=== PATIENT | female | born 1985 | race Caucasian/White ===

== ENCOUNTER → 2016-04-10 | Outpatient (CLI) | payer MEDICARE, MEDICAID ==
[2016-04-10 13:54] LABS: BASO # 0.2 K/mm3 (0.0-0.2); BASO % 1.6 % (0.0-1.0); EOS # 0.1 K/mm3 (0.0-0.50); EOS % 1.1 % (0.0-3.0); LARGE UNSTAINED CELL # 0.1 K/mm3 (0.0-0.4); LARGE UNSTAINED CELL % 1.2 % (0.0-4.0); LYMPH # 2.1 K/mm3 (1.5-4.5); LYMPH % 18.8 % (24.0-44.0); MEAN CORPUSCULAR HGB CONC 33.7 g/dl (32.0-36.5); MEAN CORPUSCULAR VOLUME 97.8 fl (80.0-96.0); MONO # 0.4 K/mm3 (0.0-0.8); NEUTROPHILS # 7.7 K/mm3 (1.8-7.7); NEUTROPHILS % 73.3 % (36.0-66.0); PLATELET COUNT, AUTOMATED 264 k/mm3 (150-450); RED CELL DISTRIBUTION WIDTH 13.3 % (11.5-14.5); WHITE BLOOD COUNT 10.5 K/mm3 (4.0-10.0)
[2016-04-10 15:28] LABS: ALBUMIN 4.1 GM/DL (3.2-5.2); ALBUMIN/GLOBULIN RATIO 1.17 (1.00-1.93); ALKALINE PHOSPHATASE 74 U/L (45-117); ALT/SGPT 34 U/L (12-78); ANION GAP 9 MEQ/L (8-16); AST/SGOT 25 U/L (15-37); BILIRUBIN,TOTAL 0.3 MG/DL (0.2-1.0); BLOOD UREA NITROGEN 10 MG/DL (7-18); CALCIUM LEVEL 9.3 MG/DL (8.5-10.1); CARBON DIOXIDE LEVEL 27 MEQ/L (21-32); CHLORIDE LEVEL 106 MEQ/L (98-107); CHOLESTEROL LEVEL 211 MG/DL (<200); CREATININE FOR GFR 0.88 MG/DL (0.55-1.02); GLOMERULAR FILTRATION RATE > 60.0 (>60); GLUCOSE, FASTING 87 MG/DL (70-105); POTASSIUM SERUM 4.5 MEQ/L (3.5-5.1); SODIUM LEVEL 142 MEQ/L (136-145); TOTAL PROTEIN 7.6 GM/DL (6.4-8.2); TRIGLYCERIDES LEVEL 132 MG/DL (<150)
== END ==
LOC: M LAB 12:46
PROVIDERS: ATTEND Family Medicine Addiction Medicine
DX: Z00.00 Encounter for general adult medical examination without abnormal findings (principal); E03.9 Hypothyroidism, unspecified

== ENCOUNTER 2016-09-28 14:36 | Emergency (ER) | payer MEDICARE, MEDICAID ==
[~2016-09-28] VITALS: Ht 160 cm; Wt 77.8 kg
[2016-09-28 14:36] VITALS: BP 152/94
[2016-09-28] MEDS ORDERED: IBUP1TAB6 GT (14:57)
[2016-09-28] MEDS ORDERED: NORCOTAB PO (15:36)
[2016-09-28] MEDS ORDERED: CLIN150C14 PO (15:36)
== END 2016-09-28 15:52 | disposition home or self-care (01) ==
LOC: M ED 15:35
DX: R68.84 Jaw pain (principal); K13.79 Other lesions of oral mucosa; K08.89 Other specified disorders of teeth and supporting structures; Z88.0 Allergy status to penicillin

== ENCOUNTER → 2016-11-27 | Outpatient (REF) | payer MEDICARE, MEDICAID ==
[~2016-11-27] MED LIST: CLIN150C14 PO; IBUP1TAB6 GT; NORCOTAB PO
[2016-11-27 20:23] LABS: FREE T4 0.9 NG/DL (0.76-1.46)
== END ==
LOC: M SFHCADAM 13:45
PROVIDERS: ATTEND Family Medicine
DX: F32.9 Major depressive disorder, single episode, unspecified (principal)
CPT/HCPCS: 84439; 84443; G0463

== ENCOUNTER → 2017-10-28 | Outpatient (REF) | payer MEDICARE, MEDICAID | LOC: M SFHCADAM 10:14 | DX: F32.9 Major depressive disorder, single episode, unspecified (principal) | CPT/HCPCS: 84443 ==

== ENCOUNTER 2018-04-04 15:58 | Emergency (ER) | payer MEDICARE, MEDICAID ==
[~2018-04-04] VITALS: Ht 160 cm; Wt 70.5 kg
[2018-04-04 15:59] VITALS: BP 143/97
[2018-04-04] MEDS ORDERED: VENL75CA47 PO (16:05)
[2018-04-04] MEDS ORDERED: MOTR200T44 PO (16:05)
[2018-04-04] MEDS ORDERED: BACL10TA2 PO (16:31)
[2018-04-04] MEDS ORDERED: PERC5TAB12 PO (16:31)
[2018-04-04] MEDS ORDERED: PERCOCET 5MG/325MG TAB PO ONE (16:45)
== END 2018-04-04 16:44 | disposition home or self-care (01) ==
LOC: M ED 15:58
DX: G89.29 Other chronic pain (principal); M54.17 Radiculopathy, lumbosacral region; M51.37 Other intervertebral disc degeneration, lumbosacral region; Z88.0 Allergy status to penicillin; F17.210 Nicotine dependence, cigarettes, uncomplicated

== ENCOUNTER 2019-03-02 12:45 | Emergency (ER) | payer MEDICAID, MEDICARE ==
[~2019-03-02] VITALS: Ht 157.5 cm; Wt 74.0 kg
[~2019-03-02 12:45] MED LIST changes: +BACL10TA2 PO; +HYDR-3715 PO; +MOTR200T44 PO; -NORCOTAB PO; +PERC5TAB12 PO; +VENL75CA47 PO
[2019-03-02] MEDS ORDERED: ACETAMINOPHEN 500 MG TAB PO ONE (13:15)
[2019-03-02 13:49] LABS: INFLUENZA A AMPLIFICATION NEGATIVE (NEGATIVE); INFLUENZA B AMPLIFICATION POSITIVE (NEGATIVE)
--- NOTE | 2019-03-02 14:17 | REP ---
Two-view chest: 03/02/2019. Indication: Chest pain. Comparison: None. Findings: The lungs are clear. There is no pleural effusion or pneumothorax. The cardiomediastinal silhouette is unremarkable. Chronic right clavicular deformity is noted. Impression: No acute cardiopulmonary process. Electronically Signed by Erickson Woods DO 03/02/2019 02:08 P
[2019-03-02] MEDS ORDERED: ONDA4TAB6 PO (14:43)
[2019-03-02] MEDS ORDERED: TESS100C PO (14:43)
[2019-03-02 14:55] VITALS: BP 108/62
--- NOTE | 2019-03-02 15:44 | ECGEPIP ---
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
== END 2019-03-02 15:20 | disposition home or self-care (01) ==
LOC: M ED 12:45
DX: J10.1 Influenza due to other identified influenza virus with other respiratory manifestations (principal); Z88.0 Allergy status to penicillin; F17.218 Nicotine dependence, cigarettes, with other nicotine-induced disorders

== ENCOUNTER 2021-01-28 19:22 | Emergency (ER) | payer MEDICARE, MEDICAID ==
[~2021-01-28] VITALS: Ht 160 cm; Wt 72.7 kg
[~2021-01-28 19:22] MED LIST changes: -CLIN150C14 PO; +CLIN150C17 PO; +ONDA4TAB6 PO; +TESS100C PO
[2021-01-28 19:24] VITALS: BP 141/98
--- OUTSIDE RECORDS SUMMARY | 2021-01-28 19:29 | CCD ---
Author Author [facility] Organization [facility] Address Unknown Phone Unavailable Support Name Relationship Address Phone Jailene Katia Next Of Kin Unknown Unavailable DIS[place] [address] UNK Next Of Kin Unknown Unavailable DISABLED Next Of Kin Unknown Unavailable MAITE SALDANA Next Of Kin [address] [place] [address] UNEMPLOYED Next Of Kin Unknown Unavailable UE Next Of Kin Unknown Unavailable KATIA JAILENE Next Of Kin [address] [place] [address] KATIAJUNIORJAILENE ECON [address] [place] [id number] Re-disclosure Warning The records that you are about to access may contain information from federally-assisted alcohol or drug abuse programs. If such information is present, then the following federally mandated warning applies: This information has been disclosed to you from records protected by federal confidentiality rules (42 CFR part 2). The federal rules prohibit you from making any further disclosure of this information unless further disclosure is expressly permitted by the written consent of the person to whom it pertains or as otherwise permitted by 42 CFR part 2. A general authorization for the release of medical or other information is NOT sufficient for this purpose. The Federal rules restrict any use of the information to criminally investigate or prosecute any alcohol or drug abuse patient.The records that you are about to access may contain highly sensitive health information, the redisclosure of which is protected by Article 27-F of the [place] State Public Health law. If you continue you may have access to information: Regarding HIV / AIDS; Provided by facilities licensed or operated by the [facility] Office of Mental Health; or Provided by the [facility] Office for People With Developmental Disabilities. If such information is present, then the following [facility] mandated warning applies: This information has been disclosed to you from confidential records which are protected by state law. State law prohibits you from making any further disclosure of this information without the specific written consent of the person to whom it pertains, or as otherwise permitted by law. Any unauthorized further disclosure in violation of state law may result in a fine or long term sentence or both. A general authorization for the release of medical or other information is NOT sufficient authorization for further disc losure. Immunizations Vaccine Date Status Description Data Source(s) COVID-19 VACCINE Moderna 08/17/2020 12:00:00 AM EDT completed [facility] Vaccine Series Complete: YESThis Data wa s Submitted to [facility] [employer]. COVID-19 VACCINE Moderna 06/07/2020 12:00:00 AM EDT completed [facility] Vaccine Series Complete: NOThis Data was Submitted to [facility] [employer]. INFLUENZA VIRUS VACCINE QUADRIVALENT 2019- (6 MOS AN D UP) 01/26/2020 12:00:00 AM EST completed [facility] Medications Medication Brand Name Start Date Product Form Dose Route Admi nistrative Instructions Pharmacy Instructions Status Indications Reaction Description Data Source(s) 60 mcg (15 mcg x 4)/0.5 mL 11/27/2020 12:00:00 AM EDT [facility] [place] 0 INJECT INTRAMUSCULARLY DIRECTED INJECT INTRAMUSCULARLY DIRECTED SOLD: 11/27/2020 [facility] 300 mg 08/29/2020 12:00:00 AM EDT capsule 14 TAKE ONE CAPSULE BY MOUTH EVERY 12 HOURS FOR 7 DAYS TAKE ONE CAPSULE BY MOUTH EVERY 12 HOURS FOR 7 DAYS SO LD: 08/29/2020 [facility] 90 mcg/actuation 08/29/2020 12:00:00 AM EDT HFA aerosol inha ler 8 INHALE TWO PUFFS BY MOUTH FOUR TIMES A DAY NEEDED INHALE TWO PUFFS BY MOUTH FOUR TIMES A DAY NEEDED SOLD: 08/29/2020 [facility] 200 mg 08/29/2020 12:00:00 AM EDT capsule 21 TAKE ONE CAPSULE BY MOUTH THREE TIMES A DAY FOR 7 DAYS TAKE ONE CAPSULE BY MOUTH THREE TIMES A DAY FOR 7 DAYS SOLD: 08/29/2020 [facility] Insurance Providers Payer name Policy type / Coverage type Policy ID Covered constitution party ID Covered constitution party's relationship to sharif Policy Sharif Plan Information MEDICAID M [id number] Self [id number] MEDICARE [id number] SP [id number] A MEDICAID [id number] SP [id number] MEDICAID [id number] SP [id number] Medicare P [id number] S [id number] A Medicaid S [id number] S [id number] ANSI-Medicare Part B [id number] ANSI-Commercial [id number] ANSI-Medicaid [id number] ANSI-Medicaid [id number] ANSI-Medicare Part B [id number] ANSI-Medicaid [id number] ANSI-Commercial [id number]-013h-[id number]-[id number]-567u-[id number] ANSI-Medicare Part B [id number] ANSI-Commercial [id number] ANSI-Medicaid [id number] ANSI-Medicaid [id number] ANSI-Commercial [id number]-[id number] ANSI-Medicaid [id number] ANSI-Medicare Part B [id number] ANSI-Medicaid [id number] ANSI-Medicaid [id number] ANSI-Medicare Part B [id number] ANSI-Commercial [id number]-dk5l-[id number]-yu51-6107-td0w-[id number] ANSI-Medicaid [id number] ANSI-Medicaid [id number] ANSI-Medicaid [id number] ANSI-Commercial [id number]-5922-[id number] [id number]-[id number] ANSI-Medicare Part B [id number] [facility]-Medicaid [id number] ANSI-Medicare Part B [id number] [facility] [id number] ANSI-Commercial j3l95xup-7051-7459-l558-zox0tme3xr60 [id number]-5833-5949-u415-ygv4hnc0ac30 ANSI-Commercial [id number]-ojzl-44xf-p74a-9976hwphn92h 322g00eu-rtkx-00vf-f74v-8371mjlcv36s ANSI-Medicare Part B [id number] ANSI-Medicaid [id number] ANSI-Medicaid [id number] ANSI-Medicaid [id number] ANSI-Commercial j9wv1v65-j454-997r-vgd1-107d3pgt0xau o7ca7m71-g952-311w-jaa2-729k4zyk1jsp ANS-Medicare Part B [id number] [facility]-Medicaid [id number] ANS-Medicare Part B [id number] ANS-Medicaid [id number] ANSI-Medicaid [id number] ANSI-Commercial 13br23w6-5y16-2053-z47h-3ry217z1u82n [id number]-c76c-[id number] ANS-Medicaid [id number] ANSI-Medicare Part B [id number] [facility]-Medicaid [id number] ANSI-Commercial [id number]-0ef26p047ecp [id number]-6oh74g176lxj [facility]-Medicaid [id number] [facility]-Medicare Part B [id number] [facility]-Medicaid [id number] ANSI-Commercial [id number]-2ow7-f79e-[id number] [id number]-1rj1-m89b-[id number] [facility]-Medicaid [id number] [facility]-Medicaid [id number] ANS-Medicare Part B [id number] ANSI-Commercial [id number]-ls09-[id number]-nc34-wun72963j2b9 ANSI-Medicare Part B [id number] ANSI-Medicaid [id number] ANSI-Commercial [id number]-uz12-8485-lib9-988tqsco0i8z [id number]-in97-5855-sgk4-363vcnug0g2q ANSI-Medicaid [id number] ANSI-Medicaid [id number] ANSI-Commercial [id number]-p5wp-6n66-i478-a87f7c15qdg1 9yoxu880-k9ef-7t98-n343-y89h6n04wii6 ANSI-Medicare Part B [id number] ANSI-Medicaid [id number] ANSI-Medicaid [id number] ANSI-Medicare Part B [id number] ANSI-Commercial [id number] [id number]-[id number] ANSI-Medicaid [id number] ANSI-Medicare Part B [id number] ANSI-Commercial [id number]-[id number] lkv485y7-3788-5fn5-541n-[id number] ANSI-Medicaid [id number] ANSI-Medicaid [id number] ANSI-Commercial [id number]-w415-6bfe-054k-[id number] 68j2295w-m361-9oau-549e-[id number] ANSI-Medicaid [id number] ANSI-Medicaid [id number] ANSI-Medicare Part B [id number] ANSI-Commercial [id number]-e2bk-479x-ic0d-[id number] 39s33cv0-x9ap-048k-hj5c-[id number] ANSI-Medicaid [id number] ANSI-Medicaid [id number] ANSI-Medicare Part B [id number] ANSI-Medicaid [id number] ANSI-Medicaid [id number] ANSI-Commercial [id number]-[id number] ANSI-Medicare Part B [id number] ANSI-Medicaid [id number] ANSI-Medicare Part B [id number] ANSI-Commercial [id number]-k3b6-138c-374v-[id number] vn26jz51-r5y2-756n-827b-[id number] ANSI-Medicaid [id number] ANSI-Medicare Part B [id number] ANSI-Medicaid [id number] ANSI-Medicaid [id number] ANSI-Commercial [id number]-da3k-12o2-640t-[id number] lg69up74-ms0n-41g2-187v-86fev1q48y30 BC/BS OF [place] B [id number] C [id number] [id number] [employer] [facility] PC O [id number] C [id number] MEDICARE OUTPATIENT M [id number] S [id number] MEDICAID [id number] S [id number] MEDICARE [id number] SP [id number] MEDICARE [id number] SP [id number] A MEDICAID [id number] SP [id number] NO FAULT NOT IN EFFECT FOT THIS VISIT SP NOT IN EFFECT FOT THIS VISIT ANSI-Medicaid [id number] Problems, Conditions, and Diagnoses No Information Surgeries/Procedures No Information Results No Information Social History No Information
--- OUTSIDE RECORDS SUMMARY | 2021-01-28 21:35 | CCD ---
Author Author [facility] Organization [facility] Address Unknown Phone Unavailable Support Name Relationship Address Phone Jailene Katia Next Of Kin Unknown Unavailable DISABILITY [place] [address] UNK Next Of Kin Unknown Unavailable DISABLED Next Of Kin Unknown Unavailable MAITE SALDANA Next Of Kin [address] [place] [address] UNEMPLOYED Next Of Kin Unknown Unavailable UE Next Of Kin Unknown Unavailable KATIA JAILENE Next Of Kin [address] [place] [address] KATIAJUNIORJAILENE ECON [address] [place] [phone] Re-disclosure Warning The records that you are [...] is protected by Article 27-F of the [place] Public Health law. If you continue you may have access to information: Regarding HIV / AIDS; Provided by facilities licensed or operated by the [facility] Office of Mental Health; or Provided by the [facility] Office for People With Developmental Disabilities. If such information is present, then the following [facility] mandated warning applies: This information has been [...] law may result in a fine or residential sentence or both. A general authorization for the release of medical or other information is NOT sufficient authorization for further disc losure. Immunizations Vaccine Date Status Description Data Source(s) COVID-19 VACCINE Moderna 08/17/2020 12:00:00 AM EDT completed [facility] Vaccine Series Complete: YESThis Data wa s Submitted to [facility] Via [employer]. COVID-19 VACCINE Moderna 06/07/2020 12:00:00 AM EDT completed [facility] Vaccine Series Complete: NOThis Data was Submitted to [facility] Via [employer]. INFLUENZA VIRUS VACCINE QUADRIVALENT 2019- (6 MOS [...] type / Coverage type Policy ID Covered libertarian ID Covered libertarian's relationship to sharif Policy Sharif Plan Information MEDICAID M [id number] Self [id number] MEDICARE [id number] SP [id number] A MEDICAID [id number] SP [id number] MEDICAID [id number] SP [id number] Medicare P [id number] S [id number] A Medicaid S [id number] S [id number] ANSI-Medicare Part B [id number] ANSI-Commercial [id number]-9hdc-9q69-[id number] a7795g5o-4uhs-1x94-[id number] ANSI-Medicaid [id number] ANSI-Medicaid [id number] ANSI-Medicare Part B [id number] ANSI-Medicaid [id number] ANSI-Commercial 28jdeuhu-046q-9e156p32-653p-0v3m2cn08y5w 97ijtndi-839s-0b327d62-662q-6v1j5uf44o9q ANSI-Medicare Part B [id number] ANSI-Commercial [id number]-b34x-8d6p-1flg-[id number] css52034-o94q-5d3x-2zvm-33hr6l0559q1 ANSI-Medicaid [id number] ANSI-Medicaid [id number] ANSI-Commercial y27f298y-j30n-78g3-ho68-42kj678d1883 r99t598b-v12p-96h4-tx35-76bo962g8115 ANSI-Medicaid [id number] ANSI-Medicare Part B [id number] ANSI-Medicaid [id number] ANSI-Medicaid [id number] ANSI-Medicare Part B [id number] ANSI-Commercial [id number]-lb26-8092-fp9b-7b5676b405w8 69t886h1-sx07-8822-ld5b-4d1253d414w5 ANSI-Medicaid [id number] ANSI-Medicaid [id number] ANSI-Medicaid [id number] ANSI-Commercial 5v7lgs09-906b-7243-j539-4g45up98k251 9p7exv70-940h-9789-q116-5o68xn22d301 ANSI-Medicare Part B [id number] [facility]-Med[facility] [id number] ANSI-Medicare Part B [id number] [facility] [id number] ANSI-Commercial m9l90gkm-1237-2802-v190-srm4yvo6ks36 m2l38lqu-3788-0289-x322-zxc7frz9vu59 ANSI-Commercial 713a51ba-qowc-58xl-h82g-4395vzzlv67k 173v37yv-gxqs-59ll-i73w-5780avvbn99t ANSI-Medicare Part B [id number] ANSI-Medicaid [id number] ANSI-Medicaid [id number] ANSI-Medicaid [id number] ANSI-Commercial l6wj0f18-b687-158j-rmm3-877v3apw4vdg o4rs3q81-d199-702b-wlj5-637g3cfr2wrq ANS-Medicare Part B [id number] [facility]-Medicaid [id number] ANS-Medicare Part B [id number] ANS-Medicaid [id number] ANSI-Medicaid [id number] ANSI-Commercial 72ef93v6-1x62-1564-e05w-5nv309v6x54a 00dp91s6-0n27-4462-l44e-9ih767y2x69j ANS-Medicaid [id number] ANSI-Medicare Part B [id number] [facility]-Medicaid [id number] ANSI-Commercial [id number]-9mk38e215ubk 701w1279-1875-4004-7qfj-0kd55u836yov [facility]-Medicaid [id number] [facility]-Medicare Part B [id number] [facility]-Medicaid [id number] ANSI-Commercial [id number]-6ge2-l28h-c97a745pvb09 203u6295-902d-9ao6-u40y-t96g523oha14 [facility]-Medicaid [id number]-[id number] [facility]-Medicaid [id number] ANS-Medicare Part B [id number] ANSI-Commercial [id number]-ni56-fzd15479c9y2 8q628p28-4547-2955-pz04-wki36711y6w6 ANSI-Medicare Part B [id number] ANSI-Medicaid [id number] ANSI-Commercial 94046p45-hs70-7037-pbl6-781dfbhb5v5l 42308y90-qv29-0876-chx6-487rtzpq5b4b ANSI-Medicaid [id number] ANSI-Medicaid [id number]-7820-[id number] ANSI-Commercial 5tbfv109-g3ii-0b50-c775-p01x5j80puy3 8ctal922-j7tb-2z18-v282-r62o4f83rcn0 ANSI-Medicare Part B [id number] ANSI-Medicaid [id number] ANSI-Medicaid [id number] ANSI-Medicare Part B [id number] ANSI-Commercial [id number]-gr78-17e2-7d19-0w7njgtx5513 m4257755-cz00-17k7-6y04-9a0vzklw1496 ANSI-Medicaid [id number] ANSI-Medicare Part B [id number] ANSI-Commercial hub773h2-7619-2ws3-473a-23d0c28h9199 fzg442m4-5805-5nm7-274g-81i4p95x1016 ANSI-Medicaid [id number] ANSI-Medicaid [id number] ANSI-Commercial 95x3704l-t357-3jfn-743r-43n54j5456k4 57z9602i-j391-5fqb-283e-84t31a2486k2 ANSI-Medicaid [id number] ANSI-Medicaid [id number] ANSI-Medicare Part B [id number] ANSI-Commercial 42g20zc5-x6fu-784r-sw0g-26077d2096j9 04n13ab4-k2ib-673u-fl1o-67621t8169w9 ANSI-Medicaid [id number] ANSI-Medicaid [id number] ANSI-Medicare Part B [id number] ANSI-Medicaid [id number]-heno-[id number] ANSI-Medicaid [id number] ANSI-Commercial 9512c3j6-8o22-2mro-70tu-[id number] 0712r2j7-5u88-4vxz-31bt-[id number] ANSI-Medicare Part B [id number] ANSI-Medicaid [id number] ANSI-Medicare Part B [id number] ANSI-Commercial vj00ow72-g5p2-590p-274w-x668ca135773 yu02an39-m7a4-726t-122k-a013yc637023 ANSI-Medicaid [id number] ANSI-Medicare Part B [id number] ANSI-Medicaid [id number] ANSI-Medicaid [id number] ANSI-Commercial vt22gb44-uq4b-73i5-461q-90nbq3b15v98 wf06hb98-gh9j-59d2-632f-97mrf7n14y24 [place] B [id number] C VY [id number] [facility] O [id number] C [id number] MEDICARE OUTPATIENT M [id number] S [id number] MEDICAID W [id number] S [id number] MEDICARE [id number] SP [id number] MEDICARE [id number] SP [id number] A MEDICAID [id number] SP [id number] NO FAULT NOT IN EFFECT FOT THIS VISIT SP NOT IN EFFECT FOT THIS VISIT ANSI-Medicaid [id number] Problems, Conditions, and Diagnoses No Information Surgeries/Procedures No Information Results No Information Social History No Information
== END 2021-01-28 21:20 | disposition left against medical advice (07) ==
LOC: M ED 19:22
DX: Z53.21 Procedure and treatment not carried out due to patient leaving prior to being seen by health care provider (principal)

== ENCOUNTER 2021-01-29 09:12 | Observation (INO) | payer MEDICARE, MEDICAID ==
[~2021-01-29] VITALS: Ht 160 cm; Wt 79.5 kg
--- OUTSIDE RECORDS SUMMARY | 2021-01-29 09:18 | CCD ---
Author Author [facility] Organization [facility] Address Unknown Phone Unavailable Support Name Relationship Address Phone Jailene Katia Next Of Kin Unknown Unavailable DISABILITY Next Of Kin [address] [place] [address] UNK Next Of Kin Unknown Unavailable DISABLED Next Of Kin Unknown Unavailable MAITE SALDANA Next Of Kin [address] [place] [address] UNEMPLOYED Next Of Kin Unknown Unavailable UE Next Of Kin Unknown Unavailable KATIA JAILENE Next Of Kin [address] [place] [address] JAILENE MONTALVO ECON [address] [place] [id number] Re-disclosure Warning The records that you are [...] is protected by Article 27-F of the [facility] Public Health law. If you continue you may have access to information: Regarding HIV / AIDS; Provided by facilities licensed or operated by the [facility] Office of Mental Health; or Provided by the [facility] Office for People With Developmental Disabilities. If such information is present, then the following [facility] mandated warning applies: This information has [...] law may result in a fine or longterm sentence or both. A general authorization for the release of medical or other information is NOT sufficient authorization for further disc losure. Immunizations Vaccine Date Status Description Data Source(s) COVID-19 VACCINE Moderna 08/17/2020 12:00:00 AM EDT completed [facility] Vaccine Series Complete: YESThis Data wa s Submitted to [facility] Via [employer] [place]. COVID-19 VACCINE Moderna 06/07/2020 12:00:00 AM EDT completed [facility] Vaccine Series Complete: NOThis Data was Submitted to [facility] Via [employer] [place]. INFLUENZA VIRUS VACCINE QUADRIVALENT 2019- (6 MOS AN D UP) 01/26/2020 12:00:00 AM EST completed [facility] Medications Medication Brand Name Start Date Product Form Dose Route Admi nistrative Instructions Pharmacy Instructions Status Indications Reaction Description Data Source(s) 60 mcg (15 mcg x 4)/0.5 mL 11/27/2020 12:00:00 AM EDT suspen trin[place] 0 INJECT INTRAMUSCULARLY DIRECTED INJECT INTRAMUSCULARLY DIRECTED SOLD: 11/27/2020 [facility] 300 mg 08/29/2020 12:00:00 AM EDT [...] type / Coverage type Policy ID Covered republican ID Covered republican's relationship to sharif Policy Sharif Plan Information MEDICAID M [id number] Self [id number] MEDICARE [id number] SP [id number] A MEDICAID [id number] SP [id number] MEDICAID [id number] SP [id number] Medicare P [id number] S [id number] A Medicaid S [id number] S [id number] ANSI-Medicaid [id number] ANSI-Medicare Part B [id number] ANSI-Commercial [id number]-8y66-[id number] g1976i2x-8rsw-4g11-[id number] ANSI-Medicaid [id number] ANSI-Medicaid [id number] ANSI-Medicare Part B [id number] ANSI-Medicaid [id number] ANSI-Commercial 68egjnte-328s-0b670v62-066g-6q5m3fs58t3j 50tpgeio-783c-2i942i58-966y-6k2t8rn97p8v ANSI-Medicare Part B [id number] ANSI-Commercial [id number]-g20r-9e8a-1kfo-02cj7f1858u8 irz56117-z71u-4l5y-7jpa-[id number] ANS-Medicaid [id number] ANS-Medicaid [id number] ANSI-Commercial i48t196o-v30g-46x0-vl49-10nx887j3845 z33g585v-m96u-64w2-[id number] ANS-Medicaid [id number] ANSI-Medicare Part B [id number] ANS-Medicaid [id number] ANSI-Medicaid [id number] ANSI-Medicare Part B [id number] ANSI-Commercial [id number]-uk32-6388-hs8z-1h1821y723w5 27t610i9-ot79-1203-ha6v-[id number] ANSI-Medicaid [id number] ANSI-Medicaid [id number] ANSI-Medicaid [id number] ANSI-Commercial [id number]-8599-[id number] 6y4qwh35-663t-0050-u443-1d50gc89a437 ANSI-Medicare Part B [id number] ANSI-Medicaid [id number] ANSI-Medicare Part B [id number] ANSI-Medicaid [id number] ANSI-Commercial u1s36dtf-3059-9081-n142-slv5clz9yr38 s7c51nqe-7799-2430-x068-spp7mdj1nf15 ANSI-Commercial 959o30nu-ogcg-18id-g98a-7138kunhx15d 599v17oh-xxbr-16jt-y72k-3590ixnvf71w ANSI-Medicare Part B [id number] ANSI-Medicaid [id number] ANSI-Medicaid [id number] ANSI-Medicaid [id number] ANSI-Commercial g3jq8v71-j551-446s-luy0-868i4qmd9mtb e8sx7f96-n344-543d-vry1-719h3uij8ctm ANSI-Medicare Part B [id number] ANSI-Medicaid [id number] ANSI-Medicare Part B [id number] ANSI-Medicaid [id number] ANSI-Medicaid [id number] ANSI-Commercial [id number]-t00b-5tm972c7r19i 54vk07c0-5d02-1502-i93g-8cj473w6o61v [facility]-Medicaid [id number] ANSI-Medicare Part B [id number] [facility]-Medicaid [id number] [facility]-Commercial [id number]-3nu32k285swn [id number]-[id number] [facility]-Medicaid [id number] ANSI-Medicare Part B [id number] [facility]-Medicaid [id number] ANS-Commercial [id number]-9xc2-h20s-p15l406ofu67 778p9570-166p-8km1-q92v-f42d153cme72 [facility]-Medicaid [id number] [facility]-Medicaid [id number] ANSI-Medicare Part B [id number] ANSI-Commercial 1n509p64-2278-2649-mc37-pal26102g6d1 3l262m01-2165-1939-op44-vso86904j8n6 ANSI-Medicare Part B [id number] ANSI-Medicaid [id number] ANSI-Commercial [id number]-tg20-3191-onc1-396pzeqw0a7w 90160j23-mn49-4934-ixl4-496fgsmv3i8s ANSI-Medicaid [id number] ANSI-Medicaid [id number] ANSI-Commercial 0ugub435-t7uw-4m88-x006-x07g4a89xhi7 4lnya914-r0eg-8u20-j621-p48e6z13zqq3 ANSI-Medicare Part B [id number] ANSI-Medicaid [id number] ANSI-Medicaid [id number] ANSI-Medicare Part B [id number] ANSI-Commercial [id number]-tl98-09n4-2w45-4d9czaaf6749 [id number]-ps50-58o4-8t24-2k2chjwr7516 [facility] [id number] ANS-Medicare Part B [id number] ANSI-Commercial kzq922n5-6569-4bs7-654x-63f3i34u4880 xai454z7-7564-1vx7-553o-04h0c83e7410 ANS-Medicaid [id number] ANS-Medicaid [id number] ANSI-Commercial 98l2664n-t435-0mua-662n-27l70l6950j3 82p5383k-c629-7oxp-171q-31i05t8273q8 ANSI-Medicaid [id number] ANSI-Medicaid [id number] ANSI-Medicare Part B [id number] ANSI-Commercial 93j39nx6-q9eg-988s-bs7l-41812k1209k9 73t48pu5-x5lc-791o-iv3n-19997m6311o3 ANSI-Medicaid [id number] ANSI-Medicaid [id number] ANSI-Medicare Part B [id number] ANSI-Medicaid [id number] ANSI-Medicaid [id number] ANSI-Commercial [id number]-04ym-[id number] [id number]-29dh-[id number] ANSI-Medicare Part B [id number] ANSI-Medicaid [id number] ANSI-Medicare Part B [id number] ANSI-Commercial ic43cj44-y3y8-415h-249f-e973ic847412 wu89hd73-e4m2-576o-221x-t789mt777067 ANSI-Medicaid [id number] ANSI-Medicare Part B [id number] ANSI-Medicaid [id number] ANSI-Medicaid [id number] ANSI-Commercial cr59nu40-sf0g-67g0-682r-90ioo7b89m94 au18hg58-bp1p-29l0-032h-15guj5n27a92 BC/[place] B [id number] C [place] [id number] [facility] PC O [id number] C [id number] MEDICARE OUTPATIENT M [id number] S [id number] [employer] [id number] SP [id number] MED[place]ID W [id number] S [id number] [place] [id number] SP [id number] MEDICARE [id number] SP [id number] MEDICARE [id number] SP [id number] A MEDICAID [id number] SP [id number] NO FAULT NOT IN EFFECT FOT THIS VISIT SP NOT IN EFFECT FOT THIS VISIT Problems, Conditions, and Diagnoses No Information Surgeries/Procedures No Information Results No Information Social History No Information
[2021-01-29] MEDS ORDERED: NS 1,000 ML IV ONE (10:10)
[2021-01-29 10:20] LABS: BASO # 0.1 10^3/uL (0.0-0.2); BASO % 0.3 % (0.0-1.0); EOS % 0.1 % (0.0-3.0); HEMATOCRIT 40.4 % (36.0-47.0); HEMOGLOBIN 13.7 g/dl (12.0-15.5); LYMPH # 1.8 10^3/uL (1.5-5.0); MEAN CORPUSCULAR HEMOGLOBIN 32.2 pg (27.0-33.0); MEAN CORPUSCULAR HGB CONC 33.9 g/dl (32.0-36.5); MEAN CORPUSCULAR VOLUME 95.1 fl (80.0-96.0); MONO # 1.2 10^3/uL (0.0-0.8); MONO % 5.8 % (2.0-8.0); NEUTROPHILS % 84.3 % (36.0-66.0); PLATELET COUNT, AUTOMATED 271 10^3/uL (150-450); RED BLOOD COUNT 4.25 10^6/uL (4.00-5.40); WHITE BLOOD COUNT 20.2 10^3/uL (4.0-10.0)
[2021-01-29] MEDS: HYDROMORPHONE HCL 0.5 MG/ 0.5 ML SYRINGE (J1170 PER 1) IV PRN ×2 (10:33→11:47)
[2021-01-29 10:43] LABS: HCG, SERUM QUALITATIVE NEGATIVE (NEGATIVE)
[2021-01-29 10:44] LABS: ALBUMIN 4.1 GM/DL (3.2-5.2); ALT/SGPT 25 U/L (12-78); BILIRUBIN,DIRECT 0.3 MG/DL (0.0-0.2); BLOOD UREA NITROGEN 10 MG/DL (7-18); CALCIUM LEVEL 9.9 MG/DL (8.5-10.1); CARBON DIOXIDE LEVEL 25 MEQ/L (21-32); CHLORIDE LEVEL 103 MEQ/L (98-107); CREATININE FOR GFR 0.86 MG/DL (0.55-1.30); GLOMERULAR FILTRATION RATE > 60.0 (>60); GLUCOSE, FASTING 120 MG/DL (70-100); LIPASE 54 U/L (73-393); POTASSIUM SERUM 3.8 MEQ/L (3.5-5.1); SODIUM LEVEL 136 MEQ/L (136-145); TOTAL PROTEIN 7.7 GM/DL (6.4-8.2)
--- NOTE | 2021-01-29 10:51 | REP ---
INDICATION: ruq pain. COMPARISON: None TECHNIQUE: Real-time sonographic evaluation of the right upper quadrant with Doppler FINDINGS: Multiple ultrasonographic images of the liver show the hepatic parenchymal echo texture to appear unremarkable. There are no focal masses. There is no intrahepatic ductal dilatation. The common bile duct measures approximately 5 mm in its greatest transverse dimension. Multiple ultrasonographic images of the gallbladder show no focal or diffuse gallbladder wall thickening. There are no echogenic foci within the gallbladder lumen, which casts acoustic shadows. There is no pericholecystic edema. Images of the pancreatic region show no gross abnormality. The imaged portion of the right kidney is unremarkable. IMPRESSION: Unremarkable right upper quadrant ultrasound. Accredited by the [employer] in General Ultrasound. <Electronically signed by Howard Crouch > 01/29/21 1049
[2021-01-29] MEDS ORDERED: ISOVUE-370 76% 100ML VIAL As Ordered ONE (11:03)
--- OUTSIDE RECORDS SUMMARY | 2021-01-29 11:07 | CCD ---
Author Author [facility] Organization [facility] Address Unknown Phone Unavailable Support Name Relationship Address Phone Jailene Katia Next Of Kin Unknown Unavailable DISABILITY Next Of Kin [address] [place] [address] UNK Next Of Kin Unknown Unavailable DISABLED Next Of Kin Unknown Unavailable MAITE SALDANA Next Of Kin [address] [place] [address] UNEMPLOYED Next Of Kin Unknown Unavailable UE Next Of Kin Unknown Unavailable KATIA JAILENE Next Of Kin [address] [place] [address] JAILENE MONTALVO ECON [address] [place] [id number] Re-disclosure Warning The records that you are [...] is protected by Article 27-F of the [facility] Public Health law. If you continue you may have access to information: Regarding HIV / AIDS; Provided by facilities licensed or operated by the [facility] Office of Mental Health; or Provided by the [facility] Office for People With Developmental Disabilities. If such information is present, then the following [facility] mandated warning applies: This information has been [...] law may result in a fine or penitentiary sentence or both. A general authorization for the release of medical or other information is NOT sufficient authorization for further disc losure. Immunizations Vaccine Date Status Description Data Source(s) COVID-19 VACCINE Moderna 08/17/2020 12:00:00 AM EDT completed [facility] Vaccine Series Complete: YESThis Data wa s Submitted to [facility] Via [employer]. COVID-19 VACCINE Moderna 06/07/2020 12:00:00 AM EDT completed [facility] Vaccine Series Complete: NOThis Data was Submitted to [facility] Via [employer]. INFLUENZA VIRUS VACCINE QUADRIVALENT 2019- (6 MOS [...] sharif Policy Sharif Plan Information MEDICAID M [id number] Self [id number] MEDICARE [id number] SP [id number] A MEDICAID [id number] SP [id number] MEDICAID [id number] SP [id number] Medicare P [id number] S [id number] A Medicaid S [id number] S [id number] ANSI-Medicaid [id number] ANSI-Medicare Part B [id number] ANSI-Commercial [id number]-[id number] f1222q6g-3jgp-5z76-[id number] ANSI-Medicaid [id number] ANSI-Medicaid [id number] ANSI-Medicare Part B [id number] ANSI-Medicaid [id number] ANSI-Commercial 66beogju-981b-[id number]-9h4o4sv18s9j 64azcrkz-670c-6c881j34-379f-8l8u8va02d7r ANSI-Medicare Part B [id number] ANSI-Commercial [id number]-[id number]-2cch-[id number] wyi52057-n75d-4h3j-8yyh-[id number] ANS-Medicaid [id number] ANS-Medicaid [id number] ANSI-Commercial [id number]-k99m-93h7-[id number] [id number]-k71d-36m8-[id number] ANS-Medicaid [id number] ANSI-Medicare Part B [id number] ANS-Medicaid [id number] ANSI-Medicaid [id number] ANSI-Medicare Part B [id number] ANSI-Commercial [id number]-zz20-6569-iq4e-[id number] 26o434v4-au83-0016-ga9v-[id number] ANSI-Medicaid [id number] ANSI-Medicaid [id number] ANSI-Medicaid [id number] ANSI-Commercial 9m1huf47-072t-3515-r060-4f68ro94n918 2x1hpj10-240n-4098-[id number] ANSI-Medicare Part B [id number] ANSI-Medicaid [id number] ANSI-Medicare Part B [id number] ANSI-Medicaid [id number] ANSI-Commercial u4q22oqw-2067-7114-n529-qnx0rdc8rw36 d6q21hjw-0567-2717-l035-ujq7kgd6nc85 ANSI-Commercial 720j78dz-zcje-31yc-f79k-3447hjigu48p 343j17ko-ltdr-41mz-n65f-1132teatx40q ANSI-Medicare Part B [id number] ANSI-Medicaid [id number] ANSI-Medicaid [id number] ANSI-Medicaid [id number] ANSI-Commercial c4wl8g74-i295-385q-ggn5-143m2ijd1zpp k1ia3y96-t789-342a-eyu2-189l8yjc0ngv ANSI-Medicare Part B [id number] ANSI-Medicaid [id number] ANSI-Medicare Part B [id number] ANSI-Medicaid [id number] ANSI-Medicaid [id number] ANSI-Commercial 86fp21z5-0l50-3820-a13j-8te610u4e44o 24bd74h7-5l31-1873-j85s-1cd836u4a51l [facility]-Medicaid [id number] ANSI-Medicare Part B [id number] [facility]-Medicaid [id number] [facility]-Commercial [id number]-9bq26o348mju [id number]-7em54s441upg [facility]-Medicaid [id number] ANSI-Medicare Part B [id number] [facility]-Medicaid [id number] ANS-Commercial [id number]-4bi8-o92g-i06n097jfi09 [id number]-7ns9-n89x-o35z887zyz91 [facility]-Medicaid [id number] [facility]-Medicaid [id number] ANSI-Medicare Part B [id number] ANSI-Commercial 4c882z04-6466-5387-gp57-yck51559r5v4 [id number]-co31-vcw55051n6n9 ANSI-Medicare Part B [id number] ANSI-Medicaid [id number] ANSI-Commercial 68356k56-jn68-3748-png6-803homuu9l9w 07212k24-ns80-5937-ugc3-570yxaer8x5h ANSI-Medicaid [id number] ANSI-Medicaid [id number] ANSI-Commercial 8paek821-v2ku-4i55-m693-z62d5c94xpy7 4ilkq608-l9yy-9x60-o278-f60f2r53nlp9 ANSI-Medicare Part B [id number] ANSI-Medicaid [id number] ANSI-Medicaid [id number] ANSI-Medicare Part B [id number] ANSI-Commercial [id number]-sh79-36i7-6b87-0y3bbtse3044 [id number]-bw93-91u1-7r71-0u4qscjt5303 [facility]-Medicaid [id number] ANS-Medicare Part B [id number] ANSI-Commercial [id number]-[id number] twg646k8-5227-6pk9-655h-87d1d95b2006 ANS-Medicaid [id number] ANS-Medicaid [id number] ANSI-Commercial [id number]-r132-3ubo-411v-[id number] 15b5478w-p001-3zac-643t-[id number] ANSI-Medicaid [id number] ANSI-Medicaid [id number] ANSI-Medicare Part B [id number] ANSI-Commercial 57o04lq7-b5nr-881v-ul5j-26781j1316x6 01e87xd3-t7ub-290e-af3y-[id number] ANSI-Medicaid [id number] ANSI-Medicaid [id number] ANSI-Medicare Part B [id number] ANSI-Medicaid [id number] ANSI-Medicaid [id number] ANSI-Commercial [id number]-[id number]-36lw-[id number] ANSI-Medicare Part B [id number] ANSI-Medicaid [id number] ANSI-Medicare Part B [id number] ANSI-Commercial iv07nl41-z6e2-463w-679f-[id number] rd79xj53-r6z9-222b-837w-[id number] ANSI-Medicaid [id number] ANSI-Medicare Part B [id number] ANSI-Medicaid [id number] ANSI-Medicaid [id number] ANSI-Commercial [id number]-dq0y-22b1-922v-[id number] px05jv97-jr0t-82x6-255g-35ifx5o45d35 BC/[place] OF [place] B [id number] C [id number] [id number] [facility] O [id number] C [id number] MEDICARE OUTPATIENT M [id number] S [id number] [place] [id number] SP [id number] MEDICAID [id number] S [id number] MEDICARE [id number] SP [id number] WELLCARE [id number] SP [id number] MEDICARE [id number] SP [id number] A MEDICAID [id number] SP [id number] NO FAULT NOT IN EFFECT FOT THIS VISIT SP NOT IN EFFECT FOT THIS VISIT Problems, Conditions, and Diagnoses No Information Surgeries/Procedures No Information Results No Information Social History No Information
--- NOTE | 2021-01-29 11:31 | REP ---
INDICATION: preop COMPARISON: 03/02/2019 TECHNIQUE: Portable AP view of the chest FINDINGS: The mediastinum and cardiac silhouette are stable and within normal limits for portable technique. The lung barragan are clear without acute consolidation, effusion, or pneumothorax. Skeletal structures are intact. IMPRESSION: No acute cardiopulmonary process appreciated. <Electronically signed by Da Dominguez > 01/29/21 1124
[2021-01-29 11:32] LABS: RSV AMPLIFICATION NEGATIVE (NEGATIVE)
--- NOTE | 2021-01-29 11:34 | REP ---
INDICATION: pleuritic abdominal pain COMPARISON: None. TECHNIQUE: Axial contrast enhanced images from the thoracic inlet to the upper abdomen using pulmonary embolus technique with multiplanar re-formations. 100 ml Isovue 370 intravenous contrast material administered without complication. This CT examination was performed using the following dose reduction techniques: Automated exposure control, adjustment of mA and/or kv according to the patient's size, and use of iterative reconstruction technique. FINDINGS: Satisfactory enhancement of the pulmonary vasculature is achieved and no filling defects are identified to suggest pulmonary embolus. Further evaluation of the mediastinum demonstrates normal thoracic aorta, heart and pericardium. The bilateral lung barragan are well aerated and clear without consolidation pleural effusion or pneumothorax. Tracheobronchial tree is patent. No nodule or mass lesion is identified. No adenopathy noted. Surrounding musculoskeletal structures intact IMPRESSION: No evidence for pulmonary embolus. Normal thoracic aorta. No acute mediastinal or pleural parenchymal process. <Electronically signed by Da Dominguez > 01/29/21 2902
--- NOTE | 2021-01-29 11:36 | REP ---
INDICATION: ruq pain. COMPARISON: None TECHNIQUE: Axial contrast-enhanced images from the lung bases to the pubic symphysis using 100 cc Isovue 370 intravenous contrast material. Coronal and sagittal reformations obtained. This CT examination was performed using the following dose reduction techniques: Automated exposure control, adjustment of mA and/or kv according to the patient's size, and the use of iterative reconstruction technique. FINDINGS: Liver demonstrates diffuse fatty infiltration without focal hepatic lesion. Spleen, pancreas, gallbladder, bilateral adrenal glands and kidneys are normal. The enteric system including stomach, small, and large bowel appears normal. No evidence for obstruction or acute inflammatory process. Normal terminal ileum and appendix are identified in the right lower quadrant. Pelvis demonstrates normal bladder and age-appropriate uterus/adnexa. IUD identified in central satisfactory position. No ascites. No free air. No intraperitoneal or retroperitoneal adenopathy. Abdominal aorta and vasculature appear normal. Musculoskeletal structures are intact and without acute osseous abnormality. IMPRESSION: No acute abdominopelvic pathology appreciated. Hepatosteatosis. <Electronically signed by Da Dominguez > 01/29/21 8008
[2021-01-29] MEDS ORDERED: GI COCKTAIL 50ML BTL(HYOSCYAMINE/MAALOX/LIDOCAINE VISCOUS)(1:3:1) PO ONE (13:15)
[2021-01-29] MEDS ORDERED: SUCRALFATE 1 GM TAB PO ONE (14:00)
[2021-01-29] MEDS ORDERED: PANTOPRAZOLE 40MG VIAL (C9113 PER 1) IV ONE (14:20)
[2021-01-29] MEDS ORDERED: HYDROMORPHONE HCL 0.5 MG/ 0.5 ML SYRINGE (J1170 PER 1) IV ONE (14:20)
[2021-01-29 15:47] LABS: AMPHETAMINES LEVEL URINE NEGATIVE (NEGATIVE); BARBITURATES URINE NEGATIVE (NEGATIVE); BENZODIAZEPINES URINE NEGATIVE (NEGATIVE); CANNABINOIDS URINE POSITIVE (NEGATIVE); COCAINE METABOLITE URINE NEGATIVE (NEGATIVE); METHADONE URINE NEGATIVE (NEGATIVE); OPIATES URINE NEGATIVE (NEGATIVE); PHENCYCLIDINE URINE NEGATIVE (NEGATIVE)
[2021-01-29] MEDS ORDERED: KETOROLAC 30 MG/ML 1ML VIAL IV ONE (15:55)
[2021-01-29] MEDS ORDERED: HOME MED LIST COMPLETE! XX SCH (15:55)
--- OUTSIDE RECORDS SUMMARY | 2021-01-29 16:59 | CCD ---
Author Author [facility] Organization [facility] Address Unknown Phone Unavailable Support Name Relationship Address Phone Jailene Katia Next Of Kin Unknown Unavailable DISABILITY Next Of Kin [address] [place] [address] UNK Next Of Kin Unknown Unavailable DISABLED Next Of Kin Unknown Unavailable MAITE SALDANA Next Of Kin [address] [place] [address] UNEMPLOYED Next Of Kin Unknown Unavailable UE Next Of Kin Unknown Unavailable KATIA JAILENE Next Of Kin [address] [place] [address] JAILENE MONTALVO ECON [address] [place] [id number] Re-disclosure Warning The records that you are [...] is protected by Article 27-F of the [facility] Public Health law. If you continue you may have access to information: Regarding HIV / AIDS; Provided by facilities licensed or operated by the [facility] Office of Mental Health; or Provided by the [facility] Office for People With Developmental Disabilities. If such information is present, then the following [facility] mandated warning applies: This information has [...] law may result in a fine or usp sentence or both. A general authorization for the release of medical or other information is NOT sufficient authorization for further disc losure. Immunizations Vaccine Date Status Description Data Source(s) COVID-19 VACCINE Moderna 08/17/2020 12:00:00 AM EDT completed [facility] Vaccine Series Complete: YESThis Data wa s Submitted to [facility] [employer]. COVID-19 VACCINE Moderna 06/07/2020 12:00:00 AM EDT completed [facility] Vaccine Series Complete: NOThis Data was Submitted to [facility] [employer]. INFLUENZA VIRUS VACCINE QUADRIVALENT 2019- (6 MOS [...] sharif Policy Sharif Plan Information MEDICAID M [id number] Self [id number] MEDICARE [id number] SP [id number] A MEDICAID [id number] SP [id number] MEDICAID [id number] SP [id number] Medicare P [id number] S [id number] A Medicaid S [id number] S [id number] ANSI-Medicaid [id number] ANSI-Medicare Part B [id number] ANSI-Commercial [id number] ANSI-Medicaid [id number] ANSI-Medicaid [id number] ANSI-Medicare Part B [id number] ANSI-Medicaid [id number] ANSI-Commercial [id number]-[id number]-[id number] [id number]-344l-[id number] ANSI-Medicare Part B [id number] ANSI-Commercial [id number] ANS-Medicaid [id number] ANS-Medicaid [id number] ANSI-Commercial [id number]-[id number]-36d7-[id number] ANS-Medicaid [id number] ANSI-Medicare Part B [id number] ANS-Medicaid [id number] ANSI-Medicaid [id number] ANSI-Medicare Part B [id number] ANSI-Commercial [id number]-py6p-[id number]-mq19-0069-ki5d-[id number] ANSI-Medicaid [id number] ANSI-Medicaid [id number] ANSI-Medicaid [id number] ANSI-Commercial [id number]-[id number] [id number] ANSI-Medicare Part B [id number] ANSI-Medicaid [id number] ANSI-Medicare Part B [id number] ANSI-Medicaid [id number] ANSI-Commercial [id number]-2428-7686-i515-mlu2mjg9qa16 [id number]-o827-[id number] ANSI-Commercial [id number]-bfzu-90ri-p94z-[id number]-vlod-12wp-f78o-1834pcahb56u ANSI-Medicare Part B [id number] ANSI-Medicaid [id number] ANSI-Medicaid [id number] ANSI-Medicaid [id number] ANSI-Commercial [id number]-m084-146y-dwc1-353l4dwq2lvk [id number]-p188-375s-beo5-655f2wuy5dee ANSI-Medicare Part B [id number] ANSI-Medicaid [id number] ANSI-Medicare Part B [id number] ANSI-Medicaid [id number] ANSI-Medicaid [id number] ANSI-Commercial [id number]-a57l-[id number] [id number]-a63i-6kw366h9q04h [facility]-Medicaid [id number] ANSI-Medicare Part B [id number] [facility]-Medicaid [id number] [facility]-Commercial [id number]-[id number]-[id number] [facility]-Medicaid [id number] ANSI-Medicare Part B [id number] [facility]-Medicaid [id number] ANS-Commercial [id number]-3wx7-[id number] [facility]-Medicaid [id number] [facility]-Medicaid [id number] ANSI-Medicare Part B [id number] ANSI-Commercial [id number]-[id number]-[id number] ANSI-Medicare Part B [id number] ANSI-Medicaid [id number] ANSI-Commercial [id number]-any9-160yltnf6r6h [id number]-ak09-5103-sfu2-857sxjwd6s4p ANSI-Medicaid [id number] ANSI-Medicaid [id number] ANSI-Commercial [id number]-c0oi-9y19-u338-t70c3p48tyj6 [id number]-a9bf-5q96-[id number] ANSI-Medicare Part B [id number] ANSI-Medicaid [id number] ANSI-Medicaid [id number] ANSI-Medicare Part B [id number] ANSI-Commercial [id number] [facility] [id number] ANS-Medicare Part B [id number] ANSI-Commercial [id number] ANS-Medicaid [id number] ANS-Medicaid [id number] ANSI-Commercial [id number]-[id number] ANSI-Medicaid [id number] ANSI-Medicaid [id number] ANSI-Medicare Part B [id number] ANSI-Commercial [id number]-o8gh-592n-[id number]-[id number]-[id number] ANSI-Medicaid [id number] ANSI-Medicaid [id number] ANSI-Medicare Part B [id number] ANSI-Medicaid [id number] ANSI-Medicaid [id number] ANSI-Commercial [id number] ANSI-Medicare Part B [id number] ANSI-Medicaid [id number] ANSI-Medicare Part B [id number] ANSI-Commercial [id number]-[id number]-[id number] ANSI-Medicaid [id number] ANSI-Medicare Part B [id number] ANSI-Medicaid [id number] ANSI-Medicaid [id number] ANSI-Commercial [id number]-[id number] BC/[place] B [id number] C [id number] [id number] [facility] O [id number] C [id number] MEDICARE OUTPATIENT M [id number] S [id number] WELLCARE [id number] SP [id number] MEDICAID W [id number] S [id number] [place] [id number] SP [id number] MEDICARE [id number] SP [id number] MEDICARE [id number] SP [id number] A MEDICAID [id number] SP [id number] NO FAULT NOT IN EFFECT FOT THIS VISIT SP NOT IN EFFECT FOT THIS VISIT Problems, Conditions, and Diagnoses No Information Surgeries/Procedures No Information Results No Information Social History No Information
[2021-01-29] MEDS ORDERED: MORPHINE 2 MG/ML 1ML VIAL (J2270) IV PRN (17:05)
[2021-01-29] MEDS ORDERED: MORPHINE 4 MG/ML 1ML VIAL/SYRINGE (J2270) IV PRN (17:05)
[2021-01-29] MEDS: NS 1,000 ML IV SCH ×2 (17:10→20:25)
--- NOTE | 2021-01-29 17:13 | HPEPDOC ---
[facility] Medical History & Physical Date of Admission Jan 29, 2021 Date of Service: Jan 29, 2021 History and Physical BenignCHIEF COMPLAINT: "Pain here" Pointed to right upper quadrant HISTORY OF PRESENT ILLNESS: 35-year-old female with a past medical history of degenerative joint disease, traumatic brain injury (residual memory issues), and depression (not on any medications) presented to the emergency room department with complaints of right upper quadrant pain. Patient reports her pain started on 01/28 at approximately 1700 and came to the emergency room department but due to waiting times left without being seen. She thought it would resolve on its own but she continued to have constant pain. She described the pain as sharp, 10/10 in intensity. It is aggravated with deep breaths as well as movements. She can pinpoint where the maximum intensity of pain is, over the right ninth rib in the mid clavicular level. She cannot identify any relieving factors. She denied having nausea and vomiting until she got Dilaudid in the emergency room department. There has been no change in her bowel movements or flatulence. She has not ate out from a restaurant and all her meals have been home-cooked. There is no one else experiencing the symptoms at home. She denied chest pain, shortness of breath, and problems with urination. PAST MEDICAL HISTORY: As mentioned above PAST SURGICAL HISTORY: Did not report any surgical history SOCIAL HISTORY: Smokes 1-1/2 pack/day. Daily marijuana use. Drinks 2-4 beers a week FAMILY HISTORY: Mother, father, and sister all have hypertension. Sister has Crohn's disease. Mother also has depression. ALLERGIES: Please see below. REVIEW OF SYSTEMS: 10 point review of system was negative except for what is noted in the HPI HOME MEDICATIONS: Please see below. PHYSICAL EXAMINATION: VITAL SIGNS: Please see below General: Lying in bed, no acute distress Head/Neck/Throat: Trachea midline, mucous membranes moist Eyes: Sclera anicteric, PERRLA Thorax: Normal respiratory effort on room air, lungs clear to auscultation bilaterally, no wheezes/rales/rhonchi Cardiovascular: Normal rate, regular rhythm, normal S1, S2; no S3, S4, rub s/gallops/murmurs Abdomen: Bowel sounds present, soft/nontender/nondistended Genitourinary: No CVA tenderness, no Alfonso in place Musculoskeletal: Palpation of the ninth/10th costochondral in the midclavicular region elicits tenderness. Skin: Warm, dry Neurologic: AAOx3, speech fluent and goal-directed, no focal deficits, grossly intact LABORATORY DATA: See below. IMAGING: PORTABLE CHEST X-RAY The mediastinum and cardiac silhouette are stable and within normal limits for portable technique. The lung barragan are clear without acute consolidation, effusion, or pneumothorax. Skeletal structures are intact. IMPRESSION: No acute cardiopulmonary process appreciated. GALLBLADDER US Multiple ultrasonographic images of the liver show the hepatic parenchymal echo texture to appear unremarkable. There are no focal masses. There is no intrah epatic ductal dilatation. The common bile duct measures approximately 5 mm in its greatest transverse dimension. Multiple ultrasonographic images of the gallbladder show no focal or diffuse gallbladder wall thickening. There are no echogenic foci within the gallbladder lumen, which casts acoustic shadows. There is no pericholecystic edema. Images of the pancreatic region show no gross abnormality. The imaged portion of the right kidney is unremarkable. IMPRESSION: Unremarkable right upper quadrant ultrasound. CT ABD/PEL W/IV CONTRAST ONLY Liver demonstrates diffuse fatty infiltration without focal hepatic lesion. Spleen, pancreas, gallbladder, bilateral adrenal glands and kidneys are normal. The enteric system including stomach, small, and large bowel appears normal. No evidence for obstruction or acute inflammatory process. Normal terminal ileum and appendix are identified in the right lower quadrant. Pelvis demonstrates normal bladder and age-appropriate uterus/adnexa. IUD identified in central satisfactory position. No ascites. No free air. No intraperitoneal or retroperitoneal adenopathy. Abdominal aorta and vasculature appear normal. Musculoskeletal structures are intact and without acute osseous abnormality. IMPRESSION: No acute abdominopelvic pathology appreciated. Hepatosteatosis. CT ANGIO CHEST Satisfactory enhancement of the pulmonary vasculature is achieved and no filling defects are identified to suggest pulmonary embolus. Further evaluation of the mediastinum demonstrates normal thoracic aorta, heart and pericardium. The bilateral lung barragan are well aerated and clear without consolidation pleural effusion or pneumothorax. Tracheobronchial tree is patent. No nodule or mass lesion is identified. No adenopathy noted. Surrounding musculoskeletal structures intact IMPRESSION: No evidence for pulmonary embolus. Normal thoracic aorta. No acute mediastinal or pleural parenchymal process. MICROBIOLOGY: Please see below. ASSESSMENT/PLAN: 35-year-old female presents to the emergency room department with costochondritic pain over the right ninth/10th rib. #Costochondritis -Unclear etiology, possibly due to her chronic cough. Start scheduled acetaminophen, and diclofenac patch; morphine as needed. #Leukocytosis -Low suspicion for infectious etiology. Continue to monitor off antibiotics. #Lactic acidosis -She has had poor p.o. intake as well as episode of vomiting. Abdominal examination at time of admission (positive bowel sounds and soft). Follow-up on repeat lactic acid. Discussed case with on-call surgeon and no acute intervention required at this time as MSK/costochondritis is suspected to be causing her pain. #Poor p.o. intake -secondary to her pain #Fatty liver -Noted on Ct-scan. This will need to be monitored with her primary care physician as an outpatient. #Depression -Not on any mood stabilizers. Continue to monitor #DVT prophylaxis -Heparin subcu Disposition if patient is tolerating a diet and pain is controlled will plan for discharge in 24 hours. Vital Signs Vital Signs Date Time Temp Pulse Resp B/P (MAP) Pulse Ox O2 Delivery O2 Flow Rate FiO2 01/29/21 16:10 83 94 01/29/21 16:00 20 135/83 (100) 01/29/21 14:40 98.4 Room Air Laboratory Data Labs 24H Laboratory Tests 2 01/29/21 09:55: POC Glucose (Misc Panel) 122H, POC Sodium (Misc Panel) 136, POC Potassium (Misc Panel) 3.7, POC Chloride (Misc Panel) 101, POC Total CO2 (Misc Panel) 22.0L, POC Blood Urea Nitrogen (Misc Panel 8, POC Ionized Calcium (Misc Panel) 4.5, POC Creatinine (Misc Panel) 0.6, POC Hematocrit (Misc Panel) 44.0 01/29/21 09:56: POC Beta HCG, Quantitative < 5.0 01/29/21 09:57: Immature Granulocyte % (Auto) 0.5, Neutrophils (%) (Auto) 84.3H, Lymphocytes (%) (Auto) 9.0L, Monocytes (%) (Auto) 5.8, Eosinophils (%) (Auto) 0.1, Basophils (%) (Auto) 0.3, Neutrophils # (Auto) 17.0H, Lymphocytes # (Auto) 1.8, Monocytes # (Auto) 1.2H, Eosinophils # (Auto) 0.0, Basophils # (Auto) 0.1, Nucleated Red Blood Cells % (auto) 0.0, Anion Gap 8, Glomerular Filtration Rate > 60.0, Calcium Level 9.9, Total Bilirubin 1.0, Direct Bilirubin 0.3H, Aspartate Amino Transf (AST/SGOT) 11, Alanine Aminotransferase (ALT/SGPT) 25, Alkaline Phosphatase 77, Total Protein 7.7, Albumin 4.1, Albumin/Globulin Ratio 1.1L, Lipase 54L, Human Chorionic Gonadotropin, Qual NEGATIVE 01/29/21 10:34: Lactic Acid Level 2.2*H 01/29/21 10:38: Coronavirus (COVID-19)(PCR) NEGATIVE, Influenza Type A (RT-PCR) NEGATIVE, Influenza Type B (RT-PCR) NEGATIVE, Respiratory Syncytial Virus (PCR) NEGATIVE 01/29/21 12:36: Urine Color STRAW, Urine Appearance CLEAR, Urine pH 8.0, Urine Specific [place] 1.031, Urine Protein NEGATIVE, Urine Glucose (UA) NEGATIVE, Urine Ketones TRACEH, Urine Blood 1+H, Urine Nitrite NEGATIVE, Urine Bilirubin NEGATIVE, Urine Urobilinogen 0.2, Urine Leukocyte Esterase 3+H, Urine WBC (Auto) 7H, Urine RBC (Auto) 2, Urine Hyaline Casts (Auto) 0, Urine Bacteria (Auto) NEGATIVE, Urine Squamous Epithelial Cells 3, Urine Sperm (Auto) , Urine Opiates Screen NEGATIVE, Urine Methadone Screen NEGATIVE, Urine Barbiturates Screen NEGATIVE, Urine Phencyclidine Screen NEGATIVE, Urine Amphetamines Screen NEGATIVE, Urine Davy odiazepines Screen NEGATIVE, Urine Cocaine Metabolite Screen NEGATIVE, Urine Cannabinoids Screen POSITIVEH CBC/BMP Laboratory Tests 01/29/21 09:57 Microbiology Microbiology 01/29/21 Urine Culture, Received Pending Home Medications No Active Prescriptions or Reported Meds Allergies Coded Allergies: Penicillins (Verified Allergy, Unknown, 03/02/19) and penicillin cross reactors amoxicillin (Verified Allergy, Unknown, 03/02/19) A-FIB/CHADSVASC A-FIB History Current/History of A-Fib/PAF?: No ANDRIA HARRIS M.D. Jan 29, 2021 16:57
--- NOTE | 2021-01-29 18:11 | ECGEPIP ---
[facility] - ED Test Date: 2021-01-29 Pat Name: JOSE MONTALVO Department: Room: - Gender: Female [employer]: john : 1985 Requested By: ANGELIKA Andujar Order Number: [id number] Reading MD: Humza Cabezas Measurements Intervals [place] Rate: 74 P: 64 MT: 122 QRS: 42 QRSD: 104 T: 39 QT: 436 QTc: 483 Interpretive Statements Normal sinus rhythm Prolonged QT BASELINE ARTIFACT AFFECTS INTERPRETATION Electronically Signed on 01-29-2021 18:11:06 EST by Humza Cabezas
[2021-01-29] MEDS: ACETAMINOPHEN TAB 650MG DOSE (2X325MG) PO PRN (20:17)
[2021-01-29] MEDS: DICLOFENAC EPOLAMINE 1.3 % PATCH TOP SCH (21:09)
[2021-01-29] MEDS: HEPARIN SOD (PORCINE) 5000UNITS/ML 1ML VIAL/SYRINGE SC SCH (21:10)
[2021-01-29 22:00] VITALS: BP 141/97
[2021-01-30] MEDS: HEPARIN SOD (PORCINE) 5000UNITS/ML 1ML VIAL/SYRINGE SC SCH ×2 (05:46→14:00)
[2021-01-30 06:00] VITALS: BP 133/64
[2021-01-30] MEDS: DICLOFENAC EPOLAMINE 1.3 % PATCH TOP SCH (08:54)
[2021-01-30] MEDS: NS 1,000 ML IV SCH (08:54)
[2021-01-30] MEDS: ACETAMINOPHEN TAB 650MG DOSE (2X325MG) PO PRN (10:42)
[2021-01-30 11:02] LABS: HEMATOCRIT 36.2 % (36.0-47.0); HEMOGLOBIN 11.9 g/dl (12.0-15.5); MEAN CORPUSCULAR HEMOGLOBIN 32.2 pg (27.0-33.0); MEAN CORPUSCULAR HGB CONC 32.9 g/dl (32.0-36.5); MEAN CORPUSCULAR VOLUME 98.1 fl (80.0-96.0); PLATELET COUNT, AUTOMATED 208 10^3/uL (150-450); RED BLOOD COUNT 3.69 10^6/uL (4.00-5.40); WHITE BLOOD COUNT 11.6 10^3/uL (4.0-10.0)
[2021-01-30 11:24] LABS: BLOOD UREA NITROGEN 6 MG/DL (7-18); CALCIUM LEVEL 9.1 MG/DL (8.5-10.1); CARBON DIOXIDE LEVEL 26 MEQ/L (21-32); CHLORIDE LEVEL 108 MEQ/L (98-107); GLOMERULAR FILTRATION RATE > 60.0 (>60); GLUCOSE, FASTING 95 MG/DL (70-100); MAGNESIUM LEVEL 2.1 MG/DL (1.8-2.4); PHOSPHORUS LEVEL 1.6 MG/DL (2.5-4.9); POTASSIUM SERUM 3.5 MEQ/L (3.5-5.1); SODIUM LEVEL 140 MEQ/L (136-145)
--- NOTE | 2021-01-30 12:58 | REP ---
INDICATION: r/o renal stone. COMPARISON: 01/29/2021 a contrast-enhanced exam TECHNIQUE: Standard helical technique without intravenous or oral bowel preparatory contrast FINDINGS: A patchy somewhat asymmetric density has developed in the right lung base. There are no pleural or pericardial effusions. Hepatic and splenic densities are within normal limits. Dense material is seen in the gallbladder secondary to vicarious excretion of the previously injected intravenous contrast. There is no evidence of nephroureterolithiasis, hydronephrosis, or hydroureter. There are no urinary bladder calcifications. There are no pelvic phleboliths. There is a T-shaped radiodensity in the uterus consistent with an IUD. The abdominal aorta and para-regions appear unchanged although seen in a limited fashion. The bowel loops and the mesenteries are again seen to be within normal limits. There is no mass or adenopathy. There is no free fluid or free air. Bone window technique throughout the examination shows the osseous structures to be stable and intact. IMPRESSION: 1. New right lung base opacities likely subsegmental atelectatic changes. Early pneumonia cannot be ruled out. 2. There is no evidence of acute intraabdominal or intra pelvic disease with findings as described above. <Electronically signed by Howard Crouch > 01/30/21 [id number]
[2021-01-30] MEDS ORDERED: K-PHOS ORIGINAL (POT.ACID PHOSPHATE) 500MG TAB PO ONE (13:00)
[2021-01-30] MEDS ORDERED: PANT40TA29 PO (15:36)
[2021-01-30] MEDS ORDERED: DICL1PAT6 TOP (15:36)
[2021-01-30] MEDS ORDERED: [UNRECOGNIZED DRUG - CODE] PO (15:39)
[2021-01-30] MEDS ORDERED: IBUP-1114 PO (15:42)
--- NOTE | 2021-01-30 18:19 | DS.PDOC ---
Discharge Summary General Date of Admission Jan 29, 2021 at 09:13 Date of Discharge 01/30/21 Discharge Summary DISCHARGE DIAGNOSES: 1. Costochondritis 2. Lactic acidosis 3. Reactive leukocytosis COMPLICATIONS/CHIEF COMPLAINT: Costochondral Pain. HOSPITAL COURSE: Ms. Pineda presented to the emergency room department on 01/29/2021 initially with complaints of right upper quadrant abdominal pain. She reported feeling nauseated, having poor p.o. intake and having episodes of vomiting. All imaging results of the abdomen including gallbladder ultrasound, abdominal/pelvis CT, angiography of the chest were negative for acute pathology. She was also evaluated by the surgical team in the emergency room department and no acute interventions were needed at that time. It was felt that her pain was most likely musculoskeletal/costochondritic in nature. Upon providers evaluation in the emergency room department she was having costochondritic pain over the right 9/10th rib in midclavicular region. There was point tenderness on examination. She responded well after receiving a diclofenac patch over the region and being placed on pain regimen with Tylenol. Prior to discharge, CT scan was done to rule out nephrolithiasis which was negative. There was atelectasis appreciated and this was attributed to her pain. Therefore she was provided with an incentive spirometer. She was asked to return to emergency room department if her symptoms worsen to call 911. DISCHARGE MEDICATIONS: Please see below. ALLERGIES: Please see below. PHYSICAL EXAMINATION ON DISCHARGE: VITAL SIGNS: Please see below. General: Lying in bed, no acute distress Head/Neck/Throat: Trachea midline, mucous membranes moist Eyes: Sclera anicteric, PERRLA Thorax: Normal respiratory effort on room air, lungs clear to auscultation bilaterally, no wheezes/rales/rhonchi Cardiovascular: Normal rate, regular rhythm, normal S1, S2; no S3, S4, rubs/gallops/murmurs Abdomen: Bowel sounds present, soft/nontender/nondistended Genitourinary: No CVA tenderness, no Alfonso in place Musculoskeletal: Moving all extremities, no edema Skin: Warm, dry Neurologic: AAOx3, speech fluent and goal-directed, no focal deficits, grossly intact LABORATORY DATA: Please see below. IMAGING: PORTABLE CHEST X-RAY The mediastinum and cardiac silhouette are stable and within normal limits for portable technique. The lung barragan are clear without acute consolidation, effusion, or pneumothorax. Skeletal structures are intact. IMPRESSION: No acute cardiopulmonary process appreciated. GALLBLADDER US Multiple ultrasonographic images of the liver show the hepatic parenchymal echo texture to appear unremarkable. There are no focal masses. There is no intrahepatic ductal dilatation. The common bile duct measures approximately 5 mm in its greatest transverse dimension. Multiple ultrasonographic images of the gallbladder show no focal or diffuse gallbladder wall thickening. There are no echogenic foci within the gallbladder lumen, which casts acoustic shadows. There is no pericholecystic edema. Images of the pancreatic region show no gross abnormality. The imaged portion of the right kidney is unremarkable. IMPRESSION: Unremarkable right upper quadrant ultrasound. CT ABD/PEL W/IV CONTRAST ONLY Liver demonstrates diffuse fatty infiltration without focal hepatic lesion. Spleen, pancreas, gallbladder, bilateral adrenal glands and kidneys are normal. The enteric system including stomach, small, and large bowel appears normal. No evidence for obstruction or acute inflammatory process. Normal terminal ileum and appendix are identified in the right lower quadrant. Pelvis demonstrates normal bladder and age-appropriate uterus/adnexa. IUD identified in central satisfactory position. No ascites. No free air. No intraperitoneal or retroperitoneal adenopathy. Abdominal aorta and vasculature appear normal. Musculoskeletal structures are intact and without acute osseous abnormality. IMPRESSION: No acute abdominopelvic pathology appreciated. Hepatosteatosis. CT ANGIO CHEST Satisfactory enhancement of the pulmonary vasculature is achieved and no filling defects are identified to suggest pulmonary embolus. Further evaluation of the mediastinum demonstrates normal thoracic aorta, heart and pericardium. The bilateral lung barragan are well aerated and clear without consolidation pleural effusion or pneumothorax. Tracheobronchial tree is patent. No nodule or mass lesion is identified. No adenopathy noted. Surrounding musculoskeletal structures intact IMPRESSION: No evidence for pulmonary embolus. Normal thoracic aorta. No acute mediastinal or pleural parenchymal process. PROGNOSIS: Good ACTIVITY: As tolerated DIET: Regular DISPOSITION: 01 Home, Self-Care. DISCHARGE INSTRUCTIONS: 1. Follow-up with primary care physician within 3 to 5 days DISCHARGE CONDITION: Stable TIME SPENT ON DISCHARGE: 25 minutes. Vital Signs/I&Os Vital Signs Date Time Temp Pulse Resp B/P (MAP) Pulse Ox O2 Delivery O2 Flow Rate FiO2 01/30/21 06:00 98.4 92 18 133/64 (87) 96 Room Air I&O- Last 24 Hours up to 6 AM 01/30/21 06:00 Intake Total 2420 ml Output Total 0 ml Balance 2420 ml Laboratory Data Labs 24H Laboratory Tests 2 01/30/21 10:23: Nucleated Red Blood Cells % (auto) 0.0, Anion Gap 6L, Glomerular Filtration Rate > 60.0, Calcium Level 9.1, Phosphorus Level 1.6L, Magnesium Level 2.1 CBC/BMP Laboratory Tests 01/30/21 10:23 Microbiology Microbiology 01/29/21 Urine Culture - Final, Complete Discharge Medications Scheduled Acetaminophen (Acetaminophen) 500 Mg Tablet, 500 MG PO Q6H Diclofenac Epolamine (Diclofenac Epolamine) 1.3% Patch, 1 PATCH TOP Q12H Ibuprofen (Ibuprofen) 400 Mg Tablet, 1 TAB PO BID for fever Pantoprazole Sodium (Pantoprazole Sodium) 40 Mg Tablet.dr, 40 MG PO DAILY Allergies Coded Allergies: Penicillins (Verified Allergy, Unknown, 03/02/19) and penicillin cross reactors amoxicillin (Verified Allergy, Unknown, 03/02/19) ANDRIA HARRIS M.D. Jan 30, 2021 18:19
== END 2021-01-30 16:45 | disposition home or self-care (01) ==
LOC: M ED 09:12 → M ED INP 09:13 → ENRESERV 18:33 → M MS5PR 20:11
PROVIDERS: ADMIT Internal Medicine; ATTEND Internal Medicine
DX: M94.0 Chondrocostal junction syndrome [Tietze] (principal); E87.2 Acidosis; D72.829 Elevated white blood cell count, unspecified; Z79.899 Other long term (current) drug therapy; Z87.820 Personal history of traumatic brain injury; Z88.0 Allergy status to penicillin; F17.218 Nicotine dependence, cigarettes, with other nicotine-induced disorders
CPT/HCPCS: 36415; 71045; 71275; 74176; 74177; 76705; 80047; 80048; 80076; 80307; 81001; 83605; 83690; 83735; 84100; 84702; 84703; 85025; 85027; 86850; 86900; 86901; 87086; 87631; 93005; 93041; 96361; 96374; 96375; 96376; 99285; C9113; G0378; J1170; J1644; J1885; J2270; Q9967

== ENCOUNTER → 2022-02-24 | Outpatient (CLI) | payer MEDICARE, MEDICAID ==
[~2022-02-24] MED LIST changes: +DICL1PAT6 TOP; +IBUP-1114 PO; +PANT40TA29 PO; +[UNRECOGNIZED DRUG - CODE] PO
[2022-02-24 12:33] LABS: BASO # 0.1 10^3/uL (0.0-0.2); BASO % 0.6 % (0.0-1.0); EOS # 0.2 10^3/uL (0.0-0.5); EOS % 1.3 % (0.0-3.0); HEMATOCRIT 41.1 % (36.0-47.0); HEMOGLOBIN 13.4 g/dl (12.0-15.5); MEAN CORPUSCULAR HEMOGLOBIN 32.1 pg (27.0-33.0); MEAN CORPUSCULAR HGB CONC 32.6 g/dl (32.0-36.5); MEAN CORPUSCULAR VOLUME 98.6 fl (80.0-96.0); MONO # 0.6 10^3/uL (0.0-0.8); NEUTROPHILS # 8.2 10^3/uL (1.5-8.5); NEUTROPHILS % 67.7 % (36.0-66.0); PLATELET COUNT, AUTOMATED 275 10^3/uL (150-450); RED BLOOD COUNT 4.17 10^6/uL (4.00-5.40); WHITE BLOOD COUNT 12.1 10^3/uL (4.0-10.0)
[2022-02-24 12:58] LABS: ALBUMIN 3.8 G/DL (3.2-5.2); ALKALINE PHOSPHATASE 70 U/L (46-116); ALT/SGPT 25 U/L (7.0-40); AST/SGOT 18 U/L (<34); BILIRUBIN,TOTAL 0.3 MG/DL (0.3-1.2); BLOOD UREA NITROGEN 14 MG/DL (9-23); CARBON DIOXIDE LEVEL 22 MMOL/L (20-31); CHLORIDE LEVEL 105 MMOL/L (98-107); CHOLESTEROL LEVEL 185 MG/DL (<200); CHOLESTEROL RISK RATIO 3.18 (<5); CREATININE FOR GFR 0.64 MG/DL (0.55-1.30); GLOMERULAR FILTRATION RATE > 60.0 (>60); GLUCOSE, FASTING 99 MG/DL (60-100); LDL CHOLESTEROL 80.6 MG/DL (<100); NON-HDL-C 127 MG/DL; POTASSIUM SERUM 4.5 MMOL/L (3.5-5.1); SODIUM LEVEL 136 MMOL/L (136-145); TOTAL PROTEIN 6.9 G/DL (5.7-8.2); TRIGLYCERIDES LEVEL 232 MG/DL (<150)
[2022-02-24 12:59] LABS: THYROID STIMULATING HORMONE 1.327 uIU/ML (0.55-4.78)
[2022-02-24 13:13] LABS: HEMOGLOBIN A1c 4.7 % (4.0-6.0)
== END ==
LOC: M WUC 09:27
PROVIDERS: ATTEND Family Medicine
DX: R06.00 Dyspnea, unspecified (principal); F32.9 Major depressive disorder, single episode, unspecified; F41.1 Generalized anxiety disorder; Z13.220 Encounter for screening for lipoid disorders; Z13.1 Encounter for screening for diabetes mellitus; Z79.899 Other long term (current) drug therapy

== ENCOUNTER → 2022-10-14 | Outpatient (REF) | payer MEDICARE, MEDICAID | LOC: M SFHCWAGY 17:07 | PROVIDERS: ATTEND Nurse Practitioner Family | DX: Z12.4 Encounter for screening for malignant neoplasm of cervix (principal); N73.9 Female pelvic inflammatory disease, unspecified; R87.810 Cervical high risk human papillomavirus (HPV) DNA test positive; R87.613 High grade squamous intraepithelial lesion on cytologic smear of cervix (HGSIL) | CPT/HCPCS: 87070; 87077; 87624; G0123 ==

== ENCOUNTER → 2022-11-25 | Outpatient (CLI) | payer MEDICARE, MEDICAID | LOC: M WUC 14:41 | PROVIDERS: ATTEND Physician Assistant | DX: S60.012A Contusion of left thumb without damage to nail, initial encounter (principal); Y93.9 Activity, unspecified; Y92.9 Unspecified place or not applicable ==

== ENCOUNTER 2023-01-14 09:22 | Day surgery (SDC) | payer MEDICAID, MEDICARE ==
[~2023-01-14] VITALS: Ht 160 cm; Wt 81.7 kg
[~2023-01-14 09:22] MED LIST changes: +ALBU8.5H; +PARO20TA3 PO
[2023-01-14] MEDS ORDERED: LR 1,000 ML IV SCH (09:45)
[2023-01-14] MEDS ORDERED: MIDAZOLAM INJ 2MG/2ML VIAL As Ordered ONE (09:51)
[2023-01-14] MEDS ORDERED: fentaNYL 100 MCG/2 ML INJECTION As Ordered ONE (09:51)
[2023-01-14] MEDS ORDERED: LIDOCAINE 2% 100MG/5ML SDV (FOR ANES.) As Ordered ONE (09:52)
[2023-01-14] MEDS ORDERED: ONDANSETRON 4MG 2ML VIAL As Ordered ONE (09:52)
[2023-01-14] MEDS ORDERED: propofoL 200 MG/20 ML VIAL As Ordered ONE (09:52)
[2023-01-14] MEDS ORDERED: KETOROLAC 60MG 2ML VIAL As Ordered ONE (09:52)
[2023-01-14 10:04] LABS: HEMATOCRIT 40.4 % (36.0-47.0); HEMOGLOBIN 13.7 g/dl (12.0-15.5); MEAN CORPUSCULAR HEMOGLOBIN 34.1 pg (27.0-33.0); MEAN CORPUSCULAR HGB CONC 33.9 g/dl (32.0-36.5); MEAN CORPUSCULAR VOLUME 100.5 fl (80.0-96.0); PLATELET COUNT, AUTOMATED 265 10^3/uL (150-450); RED BLOOD COUNT 4.02 10^6/uL (4.00-5.40); WHITE BLOOD COUNT 9.2 10^3/uL (4.0-10.0)
[2023-01-14] MEDS ORDERED: LIDOCAINE W/EPINEPHRINE 1% 20ML VIAL As Ordered ONE (11:39)
[2023-01-14] MEDS ORDERED: ACETAMINOPHEN 500 MG TAB PO PRN (12:20)
[2023-01-14] MEDS ORDERED: MORPHINE 2 MG/ML 1ML VIAL IV PRN (12:20)
[2023-01-14 12:45] VITALS: BP 151/77; TEMP 97.4; O2SAT 98
== END 2023-01-14 12:50 | disposition home or self-care (01) ==
LOC: M SDC 09:22
PROVIDERS: ATTEND Obstetrics & Gynecology
DX: D06.9 Carcinoma in situ of cervix, unspecified (principal); I10 Essential (primary) hypertension; F41.9 Anxiety disorder, unspecified; Z79.899 Other long term (current) drug therapy; F32.A Depression, unspecified; F17.210 Nicotine dependence, cigarettes, uncomplicated; Z88.8 Allergy status to other drugs, medicaments and biological substances
CPT/HCPCS: 36415; 57522; 81025; 85027; 86850; 86900; 86901; 88305; 88307; J1100; J1885; J2250; J2405; J3010

== ENCOUNTER → 2023-07-15 | Outpatient (REF) | payer MEDICARE, MEDICAID ==
[~2023-07-15] MED LIST changes: +[UNRECOGNIZED DRUG - CODE] PO; -[UNRECOGNIZED DRUG - CODE] PO
== END ==
LOC: M SFHCWAGY 15:05
PROVIDERS: ATTEND Nurse Practitioner Family
DX: Z12.4 Encounter for screening for malignant neoplasm of cervix (principal); R87.810 Cervical high risk human papillomavirus (HPV) DNA test positive; R87.613 High grade squamous intraepithelial lesion on cytologic smear of cervix (HGSIL)
CPT/HCPCS: 87624; G0123

== ENCOUNTER → 2023-09-28 | Outpatient (REF) | payer MEDICARE ==
[~2023-09-28] MED LIST changes: +ONDA-282 PO; -ONDA4TAB6 PO
[2023-09-28 14:13] LABS: URIC ACID 7.9 MG/DL (3.1-7.8)
[2023-09-28 14:16] LABS: ALBUMIN 3.6 G/DL (3.2-5.2); BLOOD UREA NITROGEN 13 MG/DL (9-23); CALCIUM LEVEL 8.9 MG/DL (8.5-10.1); CARBON DIOXIDE LEVEL 26 MMOL/L (20-31); CHLORIDE LEVEL 104 MMOL/L (98-107); CREATININE FOR GFR 0.89 MG/DL (0.55-1.30); GLOMERULAR FILTRATION RATE > 60.0 (>60); GLUCOSE, FASTING 95 MG/DL (60-100); PHOSPHORUS LEVEL 3.5 MG/DL (2.5-4.9); POTASSIUM SERUM 4.6 MMOL/L (3.5-5.1); SODIUM LEVEL 137 MMOL/L (136-145)
== END ==
LOC: M LABWUC 12:33
PROVIDERS: ATTEND Family Medicine
DX: I10 Essential (primary) hypertension (principal)

== ENCOUNTER → 2023-11-30 | Outpatient (CLI) | payer MEDICARE | LOC: M WHC 10:42 | PROVIDERS: ATTEND Obstetrics & Gynecology | DX: D06.9 Carcinoma in situ of cervix, unspecified (principal) ==

== ENCOUNTER 2024-03-28 11:49 | Observation (INO) | payer MEDICARE ==
[~2024-03-28] VITALS: Ht 160 cm; Wt 83.5 kg
[~2024-03-28 11:49] MED LIST changes: +ARIP1TAB4 PO; +LISI20TA35 PO
[2024-03-28] MEDS ORDERED: propofoL 200 MG/20 ML VIAL As Ordered ONE (12:34)
[2024-03-28] MEDS ORDERED: dexmedeTOMIDine (4MCG/ML)200MCG/50ML BTL (PRECEDEX) As Ordered ONE (12:34)
[2024-03-28] MEDS ORDERED: SUGAMMADEX SODIUM 500 MG/5 ML VIAL (BRIDION) As Ordered ONE (12:34)
[2024-03-28] MEDS ORDERED: KETOROLAC 60MG 2ML VIAL As Ordered ONE (12:34)
[2024-03-28] MEDS ORDERED: LIDOCAINE 2% 100MG/5ML SDV (FOR ANES.) As Ordered ONE (12:34)
[2024-03-28] MEDS ORDERED: METOCLOPRAMIDE INJ 10MG/2ML VIAL As Ordered ONE (12:34)
[2024-03-28] MEDS ORDERED: ROCURONIUM BROMIDE 50MG/5ML VIAL As Ordered ONE (12:34)
[2024-03-28] MEDS ORDERED: ONDANSETRON 4MG 2ML VIAL As Ordered ONE (12:34)
[2024-03-28 12:45] LABS: HEMATOCRIT 45.3 % (36.0-47.0); HEMOGLOBIN 15.7 g/dl (12.0-15.5); MEAN CORPUSCULAR HEMOGLOBIN 33.8 pg (27.0-33.0); MEAN CORPUSCULAR HGB CONC 34.7 g/dl (32.0-36.5); MEAN CORPUSCULAR VOLUME 97.4 fl (80.0-96.0); PLATELET COUNT, AUTOMATED 292 10^3/uL (150-450); RED BLOOD COUNT 4.65 10^6/uL (4.00-5.40); WHITE BLOOD COUNT 13.2 10^3/uL (4.0-10.0)
[2024-03-28] MEDS: SCOPOLAMINE 1MG TRANSDERMAL PATCH TOP ONE (13:20)
[2024-03-28] MEDS ORDERED: LR 1,000 ML IV SCH ×2 (13:20→16:40)
[2024-03-28] MEDS ORDERED: fentaNYL 250 MCG/5 ML INJECTION As Ordered ONE (14:24)
[2024-03-28] MEDS ORDERED: MIDAZOLAM INJ 2MG/2ML VIAL As Ordered ONE (14:25)
[2024-03-28] MEDS: ceFAZolin SOD 2 GM in IV 1 EA IV ONE (14:38)
[2024-03-28] MEDS: METHYLENE BLUE 0.5% (5MG/ML) 10 ML AMP (PROVAYBLUE) As Ordered ONE (15:15)
[2024-03-28] MEDS ORDERED: ACETAMINOPHEN 1000MG/100ML IV BAG As Ordered ONE (15:29)
[2024-03-28] MEDS ORDERED: HYDROmorphone HCL 2MG/ML 1ML VIAL As Ordered ONE (15:56)
[2024-03-28] MEDS ORDERED: ONDANSETRON 4MG 2ML VIAL IV PRN ×2 (16:35→16:40)
[2024-03-28] MEDS ORDERED: PERCOCET 5MG/325MG TAB PO PRN ×2 (16:40)
[2024-03-28] MEDS ORDERED: MORPHINE 4 MG/ML 1ML VIAL IV PRN (16:40)
[2024-03-28] MEDS ORDERED: PERCOCET PO (16:47)
[2024-03-28] MEDS ORDERED: COLA100C5 PO (16:47)
[2024-03-28] MEDS ORDERED: IBUP80TA PO (16:47)
[2024-03-28] MEDS: oxyCODONE 5MG TAB PO PRN (16:57)
[2024-03-28] MEDS: fentaNYL 100 MCG/2 ML INJECTION IV PRN (16:57)
[2024-03-28] MEDS: HYDROMORPHONE HCL 0.5 MG/ 0.5 ML SYRINGE IV PRN (17:26)
[2024-03-28 18:00] VITALS: BP 116/66; TEMP 97.1; O2SAT 98
[2024-03-28 18:30] VITALS: BP 110/55; TEMP 97.6; O2SAT 97
[2024-03-28 19:00] VITALS: BP 112/57; TEMP 97.7; O2SAT 95
[2024-03-28] MEDS: DOCUSATE SODIUM 100MG CAPSULE PO SCH (19:47)
[2024-03-28 20:00] VITALS: BP 119/58; TEMP 97.6; O2SAT 98
[2024-03-28 21:00] VITALS: BP 118/57; TEMP 97.6; O2SAT 97
[2024-03-28 22:00] VITALS: BP 118/58; TEMP 97.7; O2SAT 98
[2024-03-28] MEDS ORDERED: KETOROLAC 30 MG/ML 1ML VIAL IV SCH (22:00)
[2024-03-29] MEDS: KETOROLAC 30 MG/ML 1ML VIAL IV SCH
[2024-03-29 02:00] VITALS: BP 104/57; TEMP 98.2; O2SAT 100
[2024-03-29 05:37] VITALS: BP 101/66; TEMP 98.2; O2SAT 97
[2024-03-30] MEDS ORDERED: IBUPROFEN 800 MG TAB PO SCH
== END 2024-03-29 11:05 | disposition home or self-care (01) ==
LOC: M SDC 11:49 → M OBS 11:50 → M SDC 03-29 11:05
PROVIDERS: ADMIT Obstetrics & Gynecology; ATTEND Obstetrics & Gynecology
DX: R87.613 High grade squamous intraepithelial lesion on cytologic smear of cervix (HGSIL) (principal); N93.9 Abnormal uterine and vaginal bleeding, unspecified; G89.29 Other chronic pain; R10.2 Pelvic and perineal pain; I10 Essential (primary) hypertension; K21.9 Gastro-esophageal reflux disease without esophagitis; Z79.899 Other long term (current) drug therapy; F17.210 Nicotine dependence, cigarettes, uncomplicated; F32.A Depression, unspecified; F41.9 Anxiety disorder, unspecified; F43.10 Post-traumatic stress disorder, unspecified; Z88.1 Allergy status to other antibiotic agents; Z88.0 Allergy status to penicillin; Z97.5 Presence of (intrauterine) contraceptive device
CPT/HCPCS: 36415; 58571; 81025; 85027; 86850; 86900; 86901; 88307; G0378; J0131; J0665; J0690; J1100; J1171; J1885; J2250; J2405; J2765; J3010; Q9968

== ENCOUNTER → 2024-07-12 | Outpatient (CLI) | payer MEDICARE ==
[~2024-07-12] MED LIST changes: +COLA100C5 PO; +IBUP80TA PO; +PERCOCET PO
== END ==
LOC: M PLAIMG 11:25
DX: J32.9 Chronic sinusitis, unspecified (principal)

== ENCOUNTER → 2024-11-09 | Outpatient (REF) | payer MEDICARE ==
[~2024-11-09] MED LIST changes: -IBUP1TAB6 GT; +SFHIBU600 GT
[2024-11-09 20:09] LABS: PLATELET COUNT, AUTOMATED 234 10^3/uL (150-450)
[2024-11-09 20:31] LABS: ESTIMATED AVERAGE GLUCOSE 103.0 MG/DL (60-110)
[2024-11-09 20:36] LABS: ALT/SGPT 114.0 U/L (7.0-40); AST/SGOT 103.0 U/L (<34); CALCIUM LEVEL 9.8 MG/DL (8.5-10.1); CARBON DIOXIDE LEVEL 26.0 MMOL/L (20-31); CHLORIDE LEVEL 104.0 MMOL/L (98-107); CHOLESTEROL LEVEL 235.0 MG/DL (<200); CHOLESTEROL RISK RATIO 4.65 (<5); CREATININE FOR GFR 0.85 MG/DL (0.55-1.30); GLOMERULAR FILTRATION RATE 89.9 (>60); LDL CHOLESTEROL 125.9 MG/DL (<100); NON-HDL-C 184.5 MG/DL; POTASSIUM SERUM 4.7 MMOL/L (3.5-5.1); SODIUM LEVEL 140.0 MMOL/L (136-145); TRIGLYCERIDES LEVEL 293.0 MG/DL (<150)
== END ==
LOC: M SFHCPLAZ 18:09
PROVIDERS: ATTEND Family Medicine
DX: Z13.1 Encounter for screening for diabetes mellitus (principal); Z13.220 Encounter for screening for lipoid disorders; I10 Essential (primary) hypertension; F52.9 Unspecified sexual dysfunction not due to a substance or known physiological condition; F32.9 Major depressive disorder, single episode, unspecified